=== PATIENT | female | born 2000 | race African-American/Black ===

== ENCOUNTER 2018-08-02 15:33 | Outpatient (CLI) | payer OTHER ==
[~2018-08-02] VITALS: Ht 154.9 cm; Wt 63.4 kg
[2018-08-02 16:01] VITALS: BP 114/66
[2018-08-02] MEDS ORDERED: PRENTAB9 PO (16:33)
[2018-08-02] MEDS ORDERED: FERR325T3 PO (16:33)
--- NOTE | 2018-08-02 17:29 | HPE ---
DATE OF ADMISSION: 08/02/2018 17-year-old 1, para 0, LMP 01/18/2018, EDC 10/25/2018 at 28 weeks of gestation, comes in with a history of upper abdominal pain radiating to the right side since 0700 hours this morning. Vomited up her breakfast and her lunch but she is keeping down water and Gatorade. She has no history of GI upset, gastroesophageal reflux disease or intolerance to fatty foods. She works as a mortgage accounting clerk in [employer] and she did her PT this morning but it continued to give her issues and so she came into labor and delivery. Her risk factors is she is a teen , she has a BMI of 22. Labs are B+, HIV negative, hepatitis negative, RPR negative, rubella immune. Varicella is questionable is nonimmune. Gonorrhea and chlamydia are negative. Blood pressure 114/66, respirations 16, pulse 78, temperature 98.0. Urine 1.005, pH 7, negative. On examination she does not appear to be in any acute distress. Category one strip. No contractions. No decelerations. Accelerations were noted. She has no evidence of right upper quadrant pain. No nausea or vomiting while here. On examination percussion to the right upper quadrant is normal, percussion to the back is normal. Liver edge is smooth. No evidence of liver involvement or enlargement and it appears to be positional in nature. The rest of the examination is unremarkable. She is normocephalic, atraumatic. Neck full range of motion. Pupils equal and reactive to light. Distal pulses are symmetric. No evidence of DVT, PE or superficial phlebitis. Chest is clear bilaterally to bases. No wheezes or rhonchi. No CVA tenderness. Abdomen is soft. Four quadrant bowel sounds are noted. Category one strip. No contractions. She has no rashes, lesions or pruritus. No arthralgia or myalgia. No complaint of joint pain. No complaint of cough, wheeze, shortness of breath or dyspnea on exertion. Not bleeding. Neurologically complete. No incontinency, urgency or frequency. No nausea, vomiting, diarrhea or constipation. She has no LEAD SLOT TECHNICIAN issues. Too young for Pap smear. Past medical-surgical are noncontributory. Family history is noncontributory. She does not smoke, drink, or abuse drugs. 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 We gave her precautions, explained to her about positional issues, keep her appointment on 08/23/2018. She is doing centering and we discussed kick chart, PROM, bleeding and when to call her provider. The patient was discharged undelivered. She requested quarters, however we declined, there is no issue. There was no need for quarters.
== END 2018-08-02 17:10 | disposition home or self-care (01) ==
LOC: M LDO 15:33
PROVIDERS: ATTEND Obstetrics & Gynecology
DX: O26.893 Other specified pregnancy related conditions, third trimester (principal); R10.30 Lower abdominal pain, unspecified; O21.2 Late vomiting of pregnancy; Z3A.28 28 weeks gestation of pregnancy
CPT/HCPCS: G0378; G0463

== ENCOUNTER 2018-10-23 22:09 | Inpatient (IN) | payer OTHER ==
[~2018-10-23] VITALS: Ht 154.9 cm; Wt 69.4 kg
[~2018-10-23 22:09] MED LIST: FERR325T3 PO; PRENTAB9 PO
[2018-10-23 22:27] VITALS: BP 132/81
[2018-10-23] MEDS ORDERED: LACTATED RINGER'S 1000 ML IV STA (22:54)
[2018-10-23] MEDS ORDERED: LR 1,000 ML IV SCH (22:54)
--- NOTE | 2018-10-23 23:20 | HPEPDOC ---
Obstetrical History & Physical General Date of Admission October 23, 2018 History of Present Illness Lesa is a 18yo with SIUP at 39w5d by lmp c/w early u/s presenting for loss of fluid, clear, 2100. She continues to leak fluid. Starting to feel some mild ctx. No vaginal bleeding. Good movement. No f/c/n/v/CP/SOB. Chief Complaint: LOF, term Information Provided By: Patient Care Care: Good Care Dating Final EDC: October 25, 2018 Final EDC by: LMP, 1st trimester (US) Antepartum Course Diagnos(e)s Varicella non-immune, single AD soldier, excessive weight gain (38lb) Height (inches): 61 Pre- weight (lbs.): 121 Admission Weight (lbs.): 159 Change in Weight (lbs.): 38 Past Medical History Past Obstetrical History : Past Obstetrical History: [employer] History: No pertinent history Past Medical History Medical History Benign (hx of oral HSV, i.e. 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) Surgical History: Other (cataract surgery age 8) Family History Significant Family History: No pertinent family hx Social History Marital Status: Single Psychosocial History: No pertinent psych hx * Smoker: non-smoker Alcohol: Denies Drugs: denies Imunizations Tdap status: current Influenza Status: current Allergies Coded Allergies: acetaminophen (Verified Allergy, Intermediate, EYES SWELL, 10/23/18) aspirin (Verified Allergy, Intermediate, EYES SWELL, 10/23/18) ibuprofen (Verified Allergy, Intermediate, EYESSWELL, 10/23/18) Medications Scheduled Ferrous Sulfate (Ferrous Sulfate) 325 Mg Tab, 325 MG PO TID No.137/Iron/Folic Acd ( Vitamin Tablet) 1 Tab Tab, 1 TAB PO DAILY Physical Examination Physical Examination GENERAL: Alert and oriented times three. ABDOMEN: Gravid and non-tender to touch. FETUS: Is vertex (VTX) by sterile vaginal examination (SVE) EXTREMITIES: No edema of BLE Grossly ruptured with positive nitrazine Pertinent Laboratoy Data Blood Type: B+ RBC Antibody Screen: Negative HIV: Negative Hepatitis B: Negative Hepatitis C: Unknown Rapid Plasma Reagin: Nonreactive Rubella: Immune Varicella: Nonreactive Chlamydia/Gonorrhea: Negative Group B Streptococcus: Negative Glucose Tolerance Test: 131 Anatomy Ultrasound Ultrasound Date: Jun 16, 2018 Placenta Location: Anterior Normal Anatomy: Yes Placenta Previa: No Steroid Therapy Steroid Therapy: No Vaginal Examination Dilation: 4 cm Effacement: 90% Station: -1, 0 Cervical Consistency: Soft Cervical Position: Middle Presentation: Cephalic presentation Assessment Heart Rate (FHR): 140 Variability: Moderate Accelerations: Positive Decelerations: None Tocometer Contractions: Yes Frequency: regular, every 3-7 min. Duration: greater than 60 seconds Strength: palpated as mild Assessment/Plan Assessment Lesa is a 18yo with SIUP at 39w5d by lmp c/w early u/s with SROM, LOF at 21:00, clear, nitrazine positive and grossly ruptured, SCE /-2. Cat I FHRT with regular ctx, mild. Vitals wnl. Benign exam. GBS negative. Cephalic by SCE. course/PMhx significant for: Varicella non-immune, single AD [employer], excessive weight gain (38lb) Plan Admit and orient. Placement Assistant and consent. Diet: clear liquids Group B Streptococcus (GBS) negative Labs and intravenous (IV) per unit protocol. Lactated Ringers (LR): Bolus 1000 mL, then at 125 mL/hr. Anticipate normal spontaneous delivery () Candidate for epidural as desired MD Beatrice Moncada Katrina D MD October 23, 2018 23:15
[2018-10-23 23:34] LABS: HEMATOCRIT 32.5 % (36.0-47.0); HEMOGLOBIN 10.8 g/dl (12.0-15.5); MEAN CORPUSCULAR HEMOGLOBIN 28.9 pg (27.0-33.0); MEAN CORPUSCULAR HGB CONC 33.2 g/dl (32.0-36.5); MEAN CORPUSCULAR VOLUME 86.9 fl (80.0-96.0); PLATELET COUNT, AUTOMATED 235 10^3/uL (150-450); RED BLOOD COUNT 3.74 10^6/uL (4.00-5.40); WHITE BLOOD COUNT 6.4 10^3/uL (4.0-10.0)
[2018-10-23 23:49] VITALS: BP 150/97
[2018-10-24] VITALS (44 sets, daily range): BP systolic 100–145; BP diastolic 57–97
[2018-10-24] MEDS ORDERED: REFRIGERATOR IV KEYS XX PRN (06:19)
[2018-10-24] MEDS ORDERED: diphenhydrAMINE INJ 50MG/ML VIAL (J1200) IV PRN (06:19)
[2018-10-24] MEDS ORDERED: ePHEDrine SULFATE 25 MG/5 ML(5MG/ML) SYRINGE IV PRN (06:19)
[2018-10-24] MEDS ORDERED: EPIDURAL COMMENT XX SCH (06:19)
[2018-10-24] MEDS ORDERED: FENTANYL/ROPIVACAINE/NACL BAG 100 ML EPIDURAL SCH (06:19)
[2018-10-24] MEDS ORDERED: NALOXONE INJ 0.4 MG/1 ML VIAL (J2310) IV PRN (06:19)
[2018-10-24] MEDS ORDERED: LACTATED RINGER'S 1000 ML IV PRN (06:19)
[2018-10-24] MEDS ORDERED: EPIDURAL/PCA KEYS XX PRN (06:19)
[2018-10-24] MEDS ORDERED: ONDANSETRON 4MG/2ML VIAL (J2405) IV PRN (06:19)
[2018-10-24] MEDS: DOCUSATE SODIUM 100 MG CAP PO SCH ×3 (09:00→20:52)
[2018-10-24] MEDS: PRENATAL VITAMINS CHEWABLE TABLET PO SCH (09:00)
--- NOTE | 2018-10-24 10:59 | IPNPDOC ---
Text Note Date of Service The patient was seen on 10/24/18. NOTE SBAR from Dr Barron at 0730. At ~0930 was 9 cm per RN. NST has been reassu ring throughout. Uncomplicated Having signif pressure. Cx fully/+2/BARI. Start pushing. Sessions A-FIB/BJORN A-FIB History Current/History of A-Fib/PAF?: No VS,Fishbone, I+O VS, Fishbone, I+O Laboratory Tests 10/23/18 23:28 Red Blood Count 3.74 L, Mean Corpuscular Volume 86.9, Mean Corpuscular Hemoglobin 28.9, Mean Corpuscular Hemoglobin Concent 33.2, Red Cell Distribution Width 14.4 Vital Signs Date Time Temp Pulse Resp B/P (MAP) Pulse Ox O2 Delivery O2 Flow Rate FiO2 10/24/18 09:02 98.0 58 18 117/67 (84) SESSIONS,SOHAN Brennan MD October 24, 2018 10:59
[2018-10-24] MEDS ORDERED: OXYTOCIN DRIP 30 UNITS in APPROPRIATE DILUENT 1 EA IV SCH (11:36)
[2018-10-24] MEDS ORDERED: MEASLES,MUMPS,RUBELLA VACCINE INJ (MMR-II) (90707) SC SCH (11:45)
[2018-10-24] MEDS ORDERED: RHOGAM 300 MCG (1500 IU) INJ (J2790) IM SCH (11:45)
[2018-10-24] MEDS ORDERED: DIBUCAINE 1% OINTMENT 30GM TOP PRN (11:45)
[2018-10-24] MEDS ORDERED: METOCLOPRAMIDE INJ 10MG/2ML VIAL (J2765) IV PRN (11:45)
--- NOTE | 2018-10-24 11:45 | DNPDOC ---
[facility] Delivery Note Delivery Note DATE OF DELIVERY: [id number] PREDELIVERY DIAGNOSIS: 39 6/7 weeks' gestation and labor. POST DELIVERY DIAGNOSIS: Delivered. PROCEDURE: Spontaneous vaginal delivery PARKING ENFORCER: Dr. Raphael ANESTHESIA: epidural ESTIMATED BLOOD LOSS: 200 mL. FINDINGS: 7 pound 0 ounce female , Score 8/9 DELIVERY SUMMARY: Called to room, great effort. No delay of the vtx, compound arm unsure of which arm-happened very fast. Vigorous baby to abd. Cord C/C by FOB. Cord blood. Placenta intact, pit going 999, fundus firm. 1st degr lac repaired well with 3-0 vicryl, good cosmesis/hemostasis. Uncomplicated. SOHAN RAPHAEL MD October 24, 2018 11:45
[2018-10-24] MEDS ORDERED: ACETAMINOPHEN TAB 650MG DOSE (2X325MG) PO PRN (20:45)
[2018-10-25 05:57] VITALS: BP 126/72
[2018-10-25] MEDS: DOCUSATE SODIUM 100 MG CAP PO SCH ×2 (07:56→20:30)
[2018-10-25] MEDS: PRENATAL VITAMINS CHEWABLE TABLET PO SCH (07:56)
--- NOTE | 2018-10-25 09:39 | IPNPDOC ---
Text Note Date of Service The patient was seen on 10/25/18. NOTE PPD1 States feeling well, pain controlled with prescribed meds. Baby bonding and feeding well. No heavy VB. Lochia slowing. Ambulatory. Tolerating PO without issues. Voiding spont. No CP/LP/SOB. VSSAF NAD A&O LE no C/C/E Ut at U-2, firm a/p: Doing well. Cont routine care. D/C likely tomorrow. Sessions A-FIB/BJORN A-FIB History Current/History of A-Fib/PAF?: No VS,Fishbone, I+O VS, Fishbone, I+O Vital Signs Date Time Temp Pulse Resp B/P (MAP) Pulse Ox O2 Delivery O2 Flow Rate FiO2 10/25/18 05:57 98.0 67 18 126/72 (90) I&O- Last 24 Hours up to 6 AM 10/25/18 06:00 Intake Total 500 ml Output Total 2500 ml Balance -2000 ml SESSIONS,SOHAN Brennan MD October 25, 2018 09:39
[2018-10-25 18:00] VITALS: BP 131/76
[2018-10-26 05:56] VITALS: BP 119/79
--- NOTE | 2018-10-26 08:08 | DS.PDOC ---
Discharge Summary General Date of Admission October 23, 2018 at 23:11 Date of Discharge [id number] Discharge Summary ADMITTING DIAGNOSES: Active labor, SROM DISCHARGE DIAGNOSES: Same, HOSPITAL COURSE: Admitted and delivery uncomplicated, . course uncomplicated. DISCHARGE MEDICATIONS: Tylenol, Lanolin DISCHARGE INSTRUCTIONS: Nothing in the vagina for 6 weeks. F/U in OBGYN clinic in 6-8 weeks. Sessions Vital Signs/I&Os Vital Signs Date Time Temp Pulse Resp B/P (MAP) Pulse Ox O2 Delivery O2 Flow Rate FiO2 10/26/18 05:56 98.4 67 16 119/79 (92) 97 Allergies Coded Allergies: aspirin (Verified Allergy, Intermediate, EYES SWELL, 10/23/18) ibuprofen (Verified Allergy, Intermediate, EYESSWELL, 10/23/18) SESSIONS,SOHAN Brennan MD October 26, 2018 08:08
--- NOTE | 2018-10-26 08:09 | IPNPDOC ---
Text Note Date of Service The patient was seen on 10/26/18. NOTE PPD2 States feeling well, pain controlled with prescribed meds. Baby bonding and feeding well. No heavy VB. Lochia slowing. Ambulatory. Tolerating PO without issues. Voiding spont. No CP/LP/SOB. VSSAF NAD A&O LE no C/C/E Ut at U-2, firm a/p: Doing well. Cont routine care. D/C this AM. Sessions A-FIB/BJORN A-FIB History Current/History of A-Fib/PAF?: No VS,Fishbone, I+O VS, Fishbone, I+O Vital Signs Date Time Temp Pulse Resp B/P (MAP) Pulse Ox O2 Delivery O2 Flow Rate FiO2 10/26/18 05:56 98.4 67 16 119/79 (92) 97 SESSIONS,SOHAN Brennan MD October 26, 2018 08:09
[2018-10-26] MEDS ORDERED: ACET1TAB55 PO (08:10)
[2018-10-26] MEDS ORDERED: PRENCHW PO (08:10)
[2018-10-26] MEDS: DOCUSATE SODIUM 100 MG CAP PO SCH (09:00)
[2018-10-26] MEDS: PRENATAL VITAMINS CHEWABLE TABLET PO SCH (09:00)
== END 2018-10-26 14:45 | disposition home or self-care (01) | DRG 807 ==
LOC: M LDO 22:09 → M LDI 23:11 → M OBS 10-24 14:12
PROVIDERS: ADMIT Obstetrics & Gynecology; ATTEND Obstetrics & Gynecology
PROC: 10E0XZZ Delivery of Products of Conception, External Approach (ICD-10-PCS; principal; 2018-10-24)
PROC: 0HQ9XZZ Repair Perineum Skin, External Approach (ICD-10-PCS; 2018-10-24)
DX: O32.6XX0 Maternal care for compound presentation, not applicable or unspecified (principal); Z37.0 Single live birth; Z3A.39 39 weeks gestation of pregnancy; O70.0 First degree perineal laceration during delivery

== ENCOUNTER 2019-03-07 18:17 | Emergency (ER) | payer OTHER ==
[~2019-03-07] VITALS: Ht 154.9 cm; Wt 50.0 kg
[~2019-03-07 18:17] MED LIST changes: +ACET1TAB55 PO; +PRENCHW PO
[2019-03-07 18:55] LABS: HEMATOCRIT 39.3 % (36.0-47.0); HEMOGLOBIN 12.9 g/dl (12.0-15.5); MEAN CORPUSCULAR HEMOGLOBIN 29.5 pg (27.0-33.0); MEAN CORPUSCULAR HGB CONC 32.8 g/dl (32.0-36.5); MEAN CORPUSCULAR VOLUME 89.7 fl (80.0-96.0); PLATELET COUNT, AUTOMATED 323 10^3/uL (150-450); RED BLOOD COUNT 4.38 10^6/uL (4.00-5.40); WHITE BLOOD COUNT 6.1 10^3/uL (4.0-10.0)
[2019-03-07 19:22] LABS: AMPHETAMINES LEVEL URINE NEGATIVE (NEGATIVE); BARBITURATES URINE NEGATIVE (NEGATIVE); BENZODIAZEPINES URINE NEGATIVE (NEGATIVE); CANNABINOIDS URINE NEGATIVE (NEGATIVE); COCAINE METABOLITE URINE NEGATIVE (NEGATIVE); METHADONE URINE NEGATIVE (NEGATIVE); OPIATES URINE NEGATIVE (NEGATIVE); PHENCYCLIDINE URINE NEGATIVE (NEGATIVE)
[2019-03-07 19:28] LABS: HCG, SERUM QUALITATIVE NEGATIVE (NEGATIVE)
[2019-03-07 19:32] LABS: ACETAMINOPHEN LEVEL < 2.0 UG/ML (10.0-30.0); ALBUMIN 4.1 GM/DL (3.2-5.2); ALT/SGPT 17 U/L (12-78); BILIRUBIN,DIRECT 0.2 MG/DL (0.0-0.2); BILIRUBIN,TOTAL 0.6 MG/DL (0.2-1.0); BLOOD UREA NITROGEN 11 MG/DL (7-18); CALCIUM LEVEL 9.2 MG/DL (8.5-10.1); CARBON DIOXIDE LEVEL 25 MEQ/L (21-32); CHLORIDE LEVEL 108 MEQ/L (98-107); CREATININE FOR GFR 0.84 MG/DL (0.55-1.30); ETHYL ALCOHOL (ETHANOL) < 0.003 % (0.000-0.010); GLUCOSE, FASTING 79 MG/DL (70-100); POTASSIUM SERUM 3.6 MEQ/L (3.5-5.1); SALICYLATE LEVEL < 1.7 MG/DL (5.0-30.0); SODIUM LEVEL 140 MEQ/L (136-145); THYROID STIMULATING HORMONE 0.562 uIU/ML (0.463-3.98); TOTAL PROTEIN 8.4 GM/DL (6.4-8.2)
[2019-03-07 20:31] VITALS: BP 113/76
== END 2019-03-07 20:33 | disposition home or self-care (01) ==
LOC: M ED 18:17
DX: F32.9 Major depressive disorder, single episode, unspecified (principal); R45.851 Suicidal ideations; Z88.6 Allergy status to analgesic agent; Z88.8 Allergy status to other drugs, medicaments and biological substances; Z79.899 Other long term (current) drug therapy
CPT/HCPCS: 36415; 80048; 80076; 80307; 84443; 84703; 85027; 99284; G0480